=== PATIENT | female | born 1960 | race Caucasian/White ===

== ENCOUNTER 2018-11-07 10:53 | Inpatient (IN) | payer OTHER ==
[~2018-11-07] VITALS: Ht 154.9 cm; Wt 88.0 kg
[~2018-11-07 10:53] MED LIST: ADVAIR; ADVAIR INHALER; ALBUTEROL TX; DOXEPIN HCL25 MG PO; GABAPENTIN300 MG PO
--- OUTSIDE RECORDS SUMMARY | 2018-11-07 10:56 | XMS REPORT ---
Author Author [facility] Address Unknown Phone Unavailable Care Team Providers Care Computer Tape Librarian Name Role Phone Unavailable Unavailable Payers Payer Name Policy Type Policy Number Effective Date Expiration Date Problems This patient has no known problems. Allergies, Adverse Reactions, Alerts Allergy Name Allergy Type Status Severity Reaction(s) Onset Date Inactive Date Treating Clinician Comments propoxyphene HCl DA Active MO 2018-10-28 00:00:00 propoxyphene napsylate DA Active MO 2018-10-28 00:00:00 hydrocodone DA Active MO 2018-10-28 00:00:00 acetaminophen DA Active MO 2018-10-28 00:00:00 propoxyphene HCl DA Active MO 2015-07-17 00:00:00 propoxyphene napsylate DA Active MO 2015-07-17 00:00:00 hydrocodone DA Active MO 2015-07-17 00:00:00 acetaminophen DA Active DE 2015-07-17 00:00:00 Medications This patient has no known medications.
[2018-11-07] MEDS ORDERED: ALBUTEROL SULF 0.083% NEB SOLN 3 ML NEB NEB STA (11:05)
[2018-11-07] MEDS ORDERED: IPRATROPIUM BROMIDE 0.02% 2.5 ML NEB NEB STA (11:05)
--- NOTE | 2018-11-07 11:05 | NUR ---
Bipap settings 12/5 fi02 at 40
--- NOTE | 2018-11-07 11:08 | NUR ---
Respiratory at bedside to apply bipap
[2018-11-07] MEDS ORDERED: METHYLPREDNISOLONE SOD SUCC 125 MG/2ML VIAL IV ONE (11:15)
[2018-11-07] MEDS ORDERED: ASPIRIN 81 MG CHEW TAB PO ONE ×2 (11:15→14:45)
[2018-11-07 11:23] LABS: BASOPHILS # (AUTO) 0.1 (0.0-0.1); BASOPHILS % 0.5 % (0.0-1.0); EOSINOPHILS # (AUTO) 0.9 (0.0-0.4); EOSINOPHILS % 7.8 % (0.0-6.0); HEMATOCRIT 50.2 % (34.2-44.1); LYMPHOCYTES # (AUTO) 4.2 (1.0-3.2); LYMPHOCYTES % 37.7 % (18.0-39.1); MEAN CORPUSCULAR HEMOGLOBIN 29.7 pg (28-32); MEAN CORPUSCULAR HGB CONC 31.9 g/dL (31-35); MEAN CORPUSCULAR VOLUME 93.3 fL (81-99); MONOCYTES # (AUTO) 0.8 (0.2-0.8); MONOCYTES % 7.5 % (4.4-11.3); NEUTROPHILS # (AUTO) 5.2 (2.1-6.9); NEUTROPHILS % 46.1 % (38.7-80.0); PLATELET COUNT 278 x10e3/uL (140-360); RED BLOOD COUNT 5.38 x10e6/uL (3.6-5.1); RED CELL DISTRIBUTION WIDTH 12.6 % (11.7-14.4)
--- NOTE | 2018-11-07 11:43 | NUR ---
Chest xray at bedside
[2018-11-07 11:47] LABS: ALANINE AMINOTRANSFERASE 28 IU/L (0-55); ALBUMIN/GLOBULIN RATIO 1.3 (0.8-2.0); ALKALINE PHOSPHATASE 90 IU/L (40-150); ANION GAP 14.1 mmol/L (8-16); BLOOD UREA NITROGEN 18 mg/dL (7-26); BUN/CREATININE RATIO 22 (6-25); CALCIUM 9.8 mg/dL (8.4-10.2); CARBON DIOXIDE 27 mmol/L (22-29); CHLORIDE 103 mmol/L (98-107); CREATINE KINASE 39 IU/L (29-168); CREATININE, SERUM 0.81 mg/dL (0.57-1.11); EST GLOMERULAR FILTRATION RATE > 60 ML/MIN (60-); GLUCOSE 117 mg/dL (74-118); POTASSIUM 4.1 mmol/L (3.5-5.1); SODIUM 140 mmol/L (136-145)
--- NOTE | 2018-11-07 12:02 | Diagnostic Imaging Report ---
Examination: Single AP view of the chest. COMPARISON: None. INDICATION: Dyspnea DISCUSSION: Lungs are well-inflated and without focal consolidation, pleural effusion, or pneumothorax. Artifact external to the patient limits evaluation of the right lung apex. Cardiomediastinal contour is notable for atherosclerotic calcification of the thoracic aorta. Normal heart size for technique. No pulmonary edema. No acute osseous abnormality. IMPRESSION: 1. No acute cardiopulmonary abnormalities. Signed by: Dr. Ki Medel M.D. on 11/07/2018 11:59 AM
[2018-11-07 12:17] LABS: CREATINE KINASE MB < 1.00 ng/mL (0-4.3)
--- NOTE | 2018-11-07 12:26 | NUR ---
Respiratory reports pressure change to 15/5
--- NOTE | 2018-11-07 13:35 | NUR ---
Bipap in place, tolerating well. Repositioned to comfort, pillow provided, room darkened per pt request. Will continue to monitor.
[2018-11-07] MEDS ORDERED: MAGNESIUM SULFATE 2GM/50ML 50 ML IV ONE (14:45)
[2018-11-07] MEDS ORDERED: DEXAMETHASONE SOD PHOS 10 MG/1 ML VIAL IV ONE (14:45)
[2018-11-07] MEDS ORDERED: AZITHROMYCIN 500MG/SOD CHL 0.9% 250ML BAG IV SCH (14:45)
[2018-11-07] MEDS ORDERED: CEFTRIAXONE SOD 1 GM VIAL IV SCH (14:45)
[2018-11-07] MEDS ORDERED: ALBUTEROL/IPRATROPIUM 3 ML NEB NEB ONE (14:45)
[2018-11-07] MEDS: ALBUTEROL/IPRATROPIUM 3 ML NEB NEB SCH ×3 (15:00→23:15)
[2018-11-07 15:52] LABS: ABG PCO2 57 mmHg (41-51); ABG PH 7.35 (7.31-7.41); ABG PO2 149 mmHg (80-105)
[2018-11-07 15:53] LABS: ABG HCO3 31 mmol/L (23-28)
[2018-11-07] MEDS: CEFTRIAXONE SOD 1 GM/NS 50 ML 50 ML IV SCH (15:58)
--- NOTE | 2018-11-07 16:05 | NUR ---
Bipap removed by RT per pt request. O2 via NC@4lpm applied. Tolerating well at this time, will continue to monitor.
[2018-11-07] MEDS: AZITHROMYCIN 500MG/NS 250 ML 250 ML IV SCH (16:07)
--- NOTE | 2018-11-07 16:55 | NUR ---
Tried to call report to Daisy ARMSTRONG, but was told Daisy would call back to obtain report.
--- NOTE | 2018-11-07 17:36 | NUR ---
Report called to Stefania ARMSTRONG
[2018-11-07 18:15] VITALS: BP 160/90
[2018-11-07 18:17] VITALS: BP 160/90
[2018-11-07] MEDS ORDERED: TYLENOL WITH C1 EACH PO (18:40)
--- NOTE | 2018-11-07 18:53 | NUR ---
recv pt, pt is ST and sob. sats 94% 4lpm nc, bipap at bedside but pt not wanting at this time. paged MD to update on pt status and vs, also to review/restart pt home meds. pt resting in bed at this time. no c/o pain.
[2018-11-07 19:28] LABS: CREATINE KINASE 26 IU/L (29-168)
--- NOTE | 2018-11-07 19:30 | NUR ---
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
[2018-11-07] MEDS: METHYLPREDNISOLONE SOD SUCC 125 MG/2ML VIAL IV SCH (22:51)
[2018-11-08] VITALS (8 sets, daily range): BP systolic 115–131; BP diastolic 62–85
--- NOTE | 2018-11-08 01:07 | NUR ---
assisted pt up to bathroom to void, then back to bed , gave call light to pt and informed her to please call for assistance, pt verbalized understanding.
[2018-11-08] MEDS: ALBUTEROL/IPRATROPIUM 3 ML NEB NEB SCH ×2 (03:30→07:16)
[2018-11-08 05:30] LABS: BASOPHILS % 0.1 % (0.0-1.0); HEMOGLOBIN 14.2 g/dL (12.0-16.0); LYMPHOCYTES # (AUTO) 1.3 (1.0-3.2); LYMPHOCYTES % 9.2 % (18.0-39.1); MEAN CORPUSCULAR HEMOGLOBIN 29.7 pg (28-32); MEAN CORPUSCULAR HGB CONC 31.6 g/dL (31-35); MEAN CORPUSCULAR VOLUME 94.1 fL (81-99); MONOCYTES # (AUTO) 0.1 (0.2-0.8); NEUTROPHILS # (AUTO) 12.3 (2.1-6.9); PLATELET COUNT 240 x10e3/uL (140-360); RED BLOOD COUNT 4.78 x10e6/uL (3.6-5.1); RED CELL DISTRIBUTION WIDTH 12.4 % (11.7-14.4)
--- NOTE | 2018-11-08 05:51 | NUR ---
pt awake requesting a cup of coffee, gave pt a cup of decaffeinated coffee, instructed to call for help prior to getting out of bed, verbalized understanding, call earl in reach.
[2018-11-08 05:55] LABS: CREATINE KINASE MB 0.7 ng/mL (0-5.0)
[2018-11-08] MEDS: METHYLPREDNISOLONE SOD SUCC 125 MG/2ML VIAL IV SCH ×3 (06:00→21:12)
[2018-11-08 06:20] LABS: ANION GAP 13.5 mmol/L (8-16); BLOOD UREA NITROGEN 19 mg/dL (7-26); BUN/CREATININE RATIO 24 (6-25); CALCIUM 9.2 mg/dL (8.4-10.2); CARBON DIOXIDE 27 mmol/L (22-29); CHLORIDE 103 mmol/L (98-107); EST GLOMERULAR FILTRATION RATE > 60 ML/MIN (60-); GLUCOSE 241 mg/dL (74-118); POTASSIUM 4.5 mmol/L (3.5-5.1); SODIUM 139 mmol/L (136-145)
--- NOTE | 2018-11-08 07:12 | NUR ---
pt resting in bed, no c/o pain or s/s distress. will continue to monitor.
[2018-11-08] MEDS ORDERED: BENZONATATE 100 MG CAP PO PRN (09:45)
[2018-11-08] MEDS ORDERED: HYDRALAZINE HCL 25 MG TAB PO PRN (09:45)
[2018-11-08] MEDS ORDERED: LEVALBUTEROL HCL SOLN NEBU 1.25 MG/3 ML NEB INH PRN (09:45)
[2018-11-08] MEDS ORDERED: ACETAMINOPHEN/CODEINE 300MG - 30MG TAB PO PRN (09:45)
--- NOTE | 2018-11-08 09:48 | NUR ---
MD on unit, made aware pt running ST maintaining upto 120s and reaches 140s when coughing.
--- NOTE | 2018-11-08 10:29 | NUR ---
confirmed with pt she has allergy to Darvocet, breaks out in hives, but does not have reaction to T3 which she currently takes prn and states she doesnt have rx when taking cough syrup with codeine.
[2018-11-08] MEDS ORDERED: DILTIAZEM HCL ER 120 MG CAPCR PO SCH (10:30)
[2018-11-08] MEDS: IPRATROPIUM BROMIDE 0.02% 2.5 ML NEB NEB SCH ×4 (10:50→22:43)
[2018-11-08] MEDS: LEVALBUTEROL HCL SOLN NEBU 1.25 MG/3 ML NEB INH SCH ×4 (10:50→22:43)
--- NOTE | 2018-11-08 10:55 | Diagnostic Imaging Report ---
CT CHEST WITHOUT CONTRAST HISTORY: Shortness of breath COMPARISON: Chest radiograph November 07, 2018. TECHNIQUE: CT scan of the chest WITHOUT intravenous contrast, using standard protocol. The chest was scanned utilizing a multidetector helical scanner from the apex to the level of the adrenal glands. Coronal and sagittal reformats are provided. IV CONTRAST: None, which limits evaluation of the vascular structures, mediastinum and soft tissues. RADIATION DOSE: Total DLP: 493.86 mGy*cm Dose modulation, iterative reconstruction, and/or weight based adjustment of the mA/kV was utilized to reduce the radiation dose to as low as reasonably achievable. COMPLICATIONS: None FINDINGS: Lines/tubes: None. Lungs and Airways: Minimal centrilobular emphysema. Diffuse bronchial wall thickening. Mild bibasilar atelectasis. Subtle right lower lobe groundglass opacity with a central 3 mm nodular density (series 3 image 52). Pleura: No effusion or pneumothorax. Heart and mediastinum: The thyroid gland is normal. The heart and pericardium are within normal limits. Abdomen: Limited nonenhanced views of the upper abdomen. Incidentally, a 2.2 cm left adrenal nodule is less than 10 Hounsfield units. Lymph nodes: No pathologically enlarged lymph node. Vessels: Scattered atherosclerotic vascular calcifications. Bones: No acute osseous lesion identified. Soft tissues: Otherwise, unremarkable. IMPRESSION: 1. Subtle right lower lobe groundglass opacity with central nodular density. Recommend a follow-up CT of the chest without contrast in 3 months to ensure resolution. 2. Minimal centrilobular emphysema and nonspecific bronchitis. 3. Incidental left adrenal nodule, compatible with a lipid rich adenoma. Signed by: Dr. Alexandru Anna D.O., M.M.M. on 11/08/2018 10:51 AM
--- NOTE | 2018-11-08 11:14 | NUR ---
dr pelaez on unit, aware of CT
[2018-11-08] MEDS: GUAIFENESIN/CODEINE 10 ML CUP PO PRN (11:25)
--- NOTE | 2018-11-08 12:11 | Consultation ---
DATE OF CONSULTATION: PULMONARY CONSULTATION REASON FOR CONSULT: Shortness of breath and wheezing. HPI: Ms. Arce is a 58-year-old female with cough, wheezing, and shortness of breath going on for the last one year, but for the last few days progressively getting worse. She quit smoking a year ago, smoked for 50 years 1 pack per day. She denies any history of chest pain, abdominal pain. She does not use home oxygen. She is on nebulizer at home. She is not on any maintenance inhalers. REVIEW OF SYSTEMS GENERAL: Denies any fever or chills HEAD: Denies any head trauma. ENT: Denies any earache. CVS: Denies any chest pain. RESPIRATORY: Shortness of breath and wheezing. GI: Denies any nausea or vomiting. MUSCULOSKELETAL: Denies any arthralgias or myalgias. NEUROLOGIC: Denies any focal weakness. Rest of the review systems are negative except as in HPI. PAST MEDICAL HISTORY: Hypertension. PAST SURGICAL HISTORY: Unknown. FAMILY HISTORY/SOCIAL HISTORY: Ex-smoker. Denies any alcohol use. PHYSICAL EXAMINATION VITAL SIGNS: Temperature 98.1, pulse of 107, blood pressure is 116/71, respiratory rate of 20. HEENT: Head atraumatic, normocephalic. NECK: Supple. CHEST: Wheezing bilaterally. No crackles. HEART: S1, S2 audible. ABDOMEN: Soft, nontender, nondistended. EXTREMITIES: No clubbing, cyanosis, or edema. NEUROLOGIC: Awake and alert. No focal neurologic deficit. CT of the chest, I reviewed the images. There is nothing significant except emphysema. There is an area of ground-glass which appears like mucous; however, since the patient is smoker, will need a followup. Official report says 3-month followup. LABS: Reviewed. White count of 13,000. Creatinine 0.8. ASSESSMENT/PLAN: Ms. Arce is a 58-year-old female. She presented to the emergency room with worsening shortness of breath, wheezing, and cough. She has a 10-geyi-olpu smoking history, likely has underlying COPD. CT chest is not showing any evidence of pneumonia. There is a small area of ground-glass. RECOMMENDATIONS 1. Agree with Xopenex. Patient was getting tachycardiac with DuoNebs. 2. Continue Solu-Medrol as ordered and oxygen as needed. She will need outpatient followup for maintenance treatment for COPD and outpatient PFT as well. Job#: [id number] CLIFFORD
--- NOTE | 2018-11-08 13:09 | NUR ---
SOCIAL WORK INITIAL ASSESSMENT Service Station Helper to bedside to discuss plan of care with patient/family. CM/SW role and care transitions discussed. Anticipated discharge plan discussed along with duration of care. CM/SW discussed patients right to make decisions in care. CM/SW work hours given. 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 Name and number was also written on the patients whiteboard. Patient verbalized understanding of discussion. CM will follow-up with ongoing discharge and transition of care needs.
[2018-11-08] MEDS: AZITHROMYCIN 500MG/NS 250 ML 250 ML IV SCH (14:25)
[2018-11-08] MEDS: CEFTRIAXONE SOD 1 GM/NS 50 ML 50 ML IV SCH (14:25)
[2018-11-08] MEDS: BENZONATATE 100 MG CAP PO SCH ×2 (14:25→21:12)
[2018-11-08] MEDS: ENOXAPARIN SOD INJ 40 MG/0.4 ML SYR SC SCH (17:00)
--- NOTE | 2018-11-08 19:15 | NUR ---
received report from heydi espinoza, at pt's bedside. pt aaox3, ambulatory in room, c/o cough, informed pt she has rebecca ruiz scheduled, she stated ok, informed her to call for help, call earl at pt's bedside.
[2018-11-08] MEDS: GABAPENTIN 300 MG CAP PO SCH (21:12)
[2018-11-08] MEDS: DOXEPIN HCL 25 MG CAP PO SCH (21:12)
--- NOTE | 2018-11-08 23:00 | NUR ---
PT ASK FOR A CUP OF DECAFFEINATED COFFEE, WHICH WAS GIVEN TO HER. , PT STATES COUGH BETTER WITH THE TESSALON PEARLS . PT CONTINUES TO STAY [facility]ERAP[facility], HEART RATE BETTER SINCE SHE STARTRD ON CARDIZEM PO.
[2018-11-09] VITALS (8 sets, daily range): BP systolic 114–124; BP diastolic 52–74
[2018-11-09] MEDS: LEVALBUTEROL HCL SOLN NEBU 1.25 MG/3 ML NEB INH SCH ×6 (03:15→23:17)
[2018-11-09] MEDS: IPRATROPIUM BROMIDE 0.02% 2.5 ML NEB NEB SCH ×6 (03:15→23:17)
[2018-11-09 05:26] LABS: BASOPHILS # (AUTO) 0.1 (0.0-0.1); BASOPHILS % 0.2 % (0.0-1.0); HEMOGLOBIN 13.6 g/dL (12.0-16.0); LYMPHOCYTES # (AUTO) 1.2 (1.0-3.2); LYMPHOCYTES % 4.2 % (18.0-39.1); MEAN CORPUSCULAR HEMOGLOBIN 29.8 pg (28-32); MEAN CORPUSCULAR HGB CONC 30.9 g/dL (31-35); MEAN CORPUSCULAR VOLUME 96.5 fL (81-99); MONOCYTES # (AUTO) 0.5 (0.2-0.8); MONOCYTES % 1.7 % (4.4-11.3); NEUTROPHILS # (AUTO) 26.9 (2.1-6.9); NEUTROPHILS % 92.9 % (38.7-80.0); PLATELET COUNT 227 x10e3/uL (140-360); RED BLOOD COUNT 4.56 x10e6/uL (3.6-5.1); RED CELL DISTRIBUTION WIDTH 12.8 % (11.7-14.4)
[2018-11-09 05:45] LABS: ANION GAP 12.4 mmol/L (8-16); BLOOD UREA NITROGEN 24 mg/dL (7-26); BUN/CREATININE RATIO 30 (6-25); CALCIUM 9.3 mg/dL (8.4-10.2); CARBON DIOXIDE 31 mmol/L (22-29); CHLORIDE 101 mmol/L (98-107); CREATININE, SERUM 0.81 mg/dL (0.57-1.11); EST GLOMERULAR FILTRATION RATE > 60 ML/MIN (60-); GLUCOSE 204 mg/dL (74-118); POTASSIUM 5.4 mmol/L (3.5-5.1); SODIUM 139 mmol/L (136-145)
[2018-11-09] MEDS ORDERED: DILTIAZEM HCL ER 120 MG CAPCR PO SCH (06:00)
[2018-11-09] MEDS: METHYLPREDNISOLONE SOD SUCC 125 MG/2ML VIAL IV SCH (06:21)
--- NOTE | 2018-11-09 06:22 | NUR ---
MEDICATED PT WITH IV STEROID, PT SITTING UP WATCHING TELEVISION, WILL REPORT OFF WITH ONCOMING NURSE IN BED SIDE REPORT.
[2018-11-09] MEDS: BENZONATATE 100 MG CAP PO SCH ×3 (08:27→22:00)
[2018-11-09] MEDS: DILTIAZEM HCL ER 120 MG CAPCR PO SCH (08:28)
--- NOTE | 2018-11-09 08:53 | NUR ---
pt resting in bed. vs stable. no c/o pain or s/s distress at this time.
[2018-11-09] MEDS ORDERED: GUAIFENESIN/CODEINE 10 ML CUP PO PRN (10:00)
[2018-11-09 11:10] LABS: BAND NEUTROPHILS % (MANUAL) 1 %; LYMPHOCYTES % (MANUAL) 7 % (19-48); MONOCYTES % (MANUAL) 5 % (3.4-9.0); NEUTROPHILS % (MANUAL) 87 % (40-74); PLATELET ESTIMATE ADEQUATE; PLATELET MORPHOLOGY COMMENT NORMAL; RBC MORPHOLOGY COMMENT NORMAL
[2018-11-09] MEDS: AZITHROMYCIN 500MG/NS 250 ML 250 ML IV SCH (14:41)
[2018-11-09] MEDS: METHYLPREDNISOLONE SOD SUCC 40 MG/ML VIAL 1ML IV SCH ×2 (14:41→22:00)
[2018-11-09] MEDS: CEFTRIAXONE SOD 1 GM/NS 50 ML 50 ML IV SCH (14:41)
[2018-11-09] MEDS: ENOXAPARIN SOD INJ 40 MG/0.4 ML SYR SC SCH (17:00)
--- NOTE | 2018-11-09 20:00 | NUR ---
RECEIVED REPORT FROM OFF GOING NURSE , GAVE BEDSIDE REPORT , PT DENIES RESP DISTRESS, ABLE TO AMBULATE TO BATHROOM . 02 ON AT 3.0 LITERS PER N/C., TOLERATING WELL
[2018-11-09] MEDS: DOXEPIN HCL 25 MG CAP PO SCH (22:00)
[2018-11-09] MEDS: GABAPENTIN 300 MG CAP PO SCH (22:00)
[2018-11-10] VITALS: BP 105/73
--- NOTE | 2018-11-10 01:00 | NUR ---
PT AWAKE PLAYING A GAME ON HER PHONE, O2 REMAINS ON FOR RESP CARE, TOLERATING BREATHING TREATMENTS WELL
[2018-11-10 05:55] LABS: ANION GAP 10.2 mmol/L (8-16); BLOOD UREA NITROGEN 19 mg/dL (7-26); BUN/CREATININE RATIO 24 (6-25); CALCIUM 9.1 mg/dL (8.4-10.2); CARBON DIOXIDE 35 mmol/L (22-29); CHLORIDE 98 mmol/L (98-107); CREATININE, SERUM 0.79 mg/dL (0.57-1.11); EST GLOMERULAR FILTRATION RATE > 60 ML/MIN (60-); GLUCOSE 208 mg/dL (74-118); POTASSIUM 5.2 mmol/L (3.5-5.1); SODIUM 138 mmol/L (136-145)
[2018-11-10 06:16] LABS: BASOPHILS % 0.1 % (0.0-1.0); HEMATOCRIT 39.5 % (34.2-44.1); HEMOGLOBIN 13.1 g/dL (12.0-16.0); LYMPHOCYTES # (AUTO) 0.9 (1.0-3.2); LYMPHOCYTES % 3.9 % (18.0-39.1); MEAN CORPUSCULAR HEMOGLOBIN 31.3 pg (28-32); MEAN CORPUSCULAR HGB CONC 33.2 g/dL (31-35); MEAN CORPUSCULAR VOLUME 94.5 fL (81-99); MONOCYTES # (AUTO) 0.5 (0.2-0.8); MONOCYTES % 2.1 % (4.4-11.3); NEUTROPHILS # (AUTO) 20.2 (2.1-6.9); NEUTROPHILS % 92.4 % (38.7-80.0); PLATELET COUNT 225 x10e3/uL (140-360); RED BLOOD COUNT 4.18 x10e6/uL (3.6-5.1)
[2018-11-10] MEDS: METHYLPREDNISOLONE SOD SUCC 40 MG/ML VIAL 1ML IV SCH ×3 (07:11→21:44)
[2018-11-10] MEDS: LEVALBUTEROL HCL SOLN NEBU 1.25 MG/3 ML NEB INH SCH ×5 (07:23→22:58)
[2018-11-10] MEDS: IPRATROPIUM BROMIDE 0.02% 2.5 ML NEB NEB SCH ×5 (07:23→22:58)
[2018-11-10 07:37] VITALS: BP 107/63
[2018-11-10 07:38] VITALS: BP 107/63
--- NOTE | 2018-11-10 08:13 | NUR ---
pt resting in bed, no c/o pain or s/s distress. MD on unit, aware of K lab. will continue to monitor.
[2018-11-10] MEDS: DILTIAZEM HCL ER 120 MG CAPCR PO SCH (08:47)
[2018-11-10] MEDS: BENZONATATE 100 MG CAP PO SCH ×3 (08:47→21:44)
[2018-11-10] MEDS ORDERED: SOD POLYSTYRENE SULFONATE SUSP 15 GM/60 ML BTL PO ONE (09:00)
[2018-11-10] MEDS ORDERED: FAMOTIDINE 20 MG TAB PO ONE (10:00)
[2018-11-10 10:10] LABS: HOWELL-JOLLY BODIES FEW; HYPOCHROMASIA SLIGHT; LYMPHOCYTES % (MANUAL) 3 % (19-48); MONOCYTES % (MANUAL) 1 % (3.4-9.0); NEUTROPHILS % (MANUAL) 93 % (40-74); RBC MORPHOLOGY COMMENT NORMAL
[2018-11-10 10:12] LABS: PLATELET ESTIMATE ADEQUATE; PLATELET MORPHOLOGY COMMENT FEW LARGE
[2018-11-10 10:13] LABS: ANISOCYTOSIS SLIGHT
[2018-11-10 12:49] VITALS: BP 122/65
[2018-11-10] MEDS: CEFTRIAXONE SOD 1 GM/NS 50 ML 50 ML IV SCH (16:26)
[2018-11-10] MEDS: AZITHROMYCIN 500MG/NS 250 ML 250 ML IV SCH (16:26)
[2018-11-10] MEDS: ENOXAPARIN SOD INJ 40 MG/0.4 ML SYR SC SCH (16:27)
[2018-11-10 16:28] VITALS: BP 124/74
--- NOTE | 2018-11-10 18:00 | NUR ---
pt c/o no bm in 3 days. Kayexalate given today and no bm. pt states "dr davis normally gives me linzess". left vm for
[2018-11-10 20:00] VITALS: BP 146/88
[2018-11-10] MEDS: GUAIFENESIN/CODEINE 10 ML CUP PO PRN (20:12)
[2018-11-10] MEDS: GABAPENTIN 300 MG CAP PO SCH (21:44)
[2018-11-10] MEDS: DOXEPIN HCL 25 MG CAP PO SCH (21:44)
[2018-11-10] MEDS: FAMOTIDINE 20 MG TAB PO SCH (21:45)
[2018-11-11] VITALS (8 sets, daily range): BP systolic 108–154; BP diastolic 64–94
[2018-11-11] MEDS: LEVALBUTEROL HCL SOLN NEBU 1.25 MG/3 ML NEB INH SCH ×6 (02:37→23:00)
[2018-11-11] MEDS: IPRATROPIUM BROMIDE 0.02% 2.5 ML NEB NEB SCH ×6 (02:37→23:00)
[2018-11-11 05:00] LABS: BASOPHILS % 0.1 % (0.0-1.0); HEMATOCRIT 42.7 % (34.2-44.1); HEMOGLOBIN 13.3 g/dL (12.0-16.0); LYMPHOCYTES # (AUTO) 0.7 (1.0-3.2); LYMPHOCYTES % 4.9 % (18.0-39.1); MEAN CORPUSCULAR HEMOGLOBIN 30.1 pg (28-32); MEAN CORPUSCULAR HGB CONC 31.1 g/dL (31-35); MEAN CORPUSCULAR VOLUME 96.6 fL (81-99); MONOCYTES # (AUTO) 0.4 (0.2-0.8); NEUTROPHILS # (AUTO) 12.2 (2.1-6.9); NEUTROPHILS % 90.1 % (38.7-80.0); PLATELET COUNT 213 x10e3/uL (140-360); RED BLOOD COUNT 4.42 x10e6/uL (3.6-5.1); RED CELL DISTRIBUTION WIDTH 12.6 % (11.7-14.4)
[2018-11-11 05:13] LABS: ANION GAP 9.7 mmol/L (8-16); BLOOD UREA NITROGEN 21 mg/dL (7-26); BUN/CREATININE RATIO 27 (6-25); CALCIUM 8.9 mg/dL (8.4-10.2); CARBON DIOXIDE 34 mmol/L (22-29); CHLORIDE 99 mmol/L (98-107); CREATININE, SERUM 0.78 mg/dL (0.57-1.11); EST GLOMERULAR FILTRATION RATE > 60 ML/MIN (60-); GLUCOSE 259 mg/dL (74-118); POTASSIUM 4.7 mmol/L (3.5-5.1); SODIUM 138 mmol/L (136-145)
[2018-11-11] MEDS: METHYLPREDNISOLONE SOD SUCC 40 MG/ML VIAL 1ML IV SCH ×2 (06:14→16:42)
--- NOTE | 2018-11-11 08:42 | NUR ---
Dr. Moon shook to transfer patient to med surg with telemetry.
[2018-11-11] MEDS: FAMOTIDINE 20 MG TAB PO SCH ×2 (08:58→16:30)
[2018-11-11] MEDS: DILTIAZEM HCL ER 120 MG CAPCR PO SCH (08:58)
[2018-11-11] MEDS: BENZONATATE 100 MG CAP PO SCH ×3 (08:59→21:30)
--- NOTE | 2018-11-11 13:00 | NUR ---
RCD PT BY WHEEL CHAIR PT IS ALERT AND ORIENTED VITALS CHECKED PT RESTING ON BED BED LOW AND LOCKED CALL LIGHT IN REACH
[2018-11-11] MEDS ORDERED: SODIUM CHLORIDE 0.9% 250ML 250 ML ONE (14:42)
[2018-11-11] MEDS: CEFTRIAXONE SOD 1 GM/NS 50 ML 50 ML IV SCH (15:00)
[2018-11-11] MEDS: AZITHROMYCIN 500MG/NS 250 ML 250 ML IV SCH (15:00)
[2018-11-11] MEDS: ENOXAPARIN SOD INJ 40 MG/0.4 ML SYR SC SCH (16:43)
--- NOTE | 2018-11-11 19:00 | NUR ---
PT RESTING ON BED BED SIDE REPORT GIVEN TO ONCOMING NURSE
--- NOTE | 2018-11-11 19:30 | NUR ---
RECEIVED THE PT IN REPORT.AAOX3.NO RESP.DISTRESS.NO PAIN VOICED.BED LOCKED AND IN LOWEST POSITION.PHONE AND CALL LIGHT WITHIN REACH.INSTRUCTED TO CALL FOR ASSISTANCE NEEDED.
[2018-11-11] MEDS: DOXEPIN HCL 25 MG CAP PO SCH (21:05)
[2018-11-11] MEDS: GABAPENTIN 300 MG CAP PO SCH (21:10)
[2018-11-12] VITALS: BP 132/77
--- NOTE | 2018-11-12 02:36 | NUR ---
PT IS RESTING IN THE BED.NO PAIN VOICED.
[2018-11-12] MEDS: LEVALBUTEROL HCL SOLN NEBU 1.25 MG/3 ML NEB INH SCH ×5 (03:00→19:25)
[2018-11-12] MEDS: IPRATROPIUM BROMIDE 0.02% 2.5 ML NEB NEB SCH ×5 (03:00→19:25)
[2018-11-12 04:00] VITALS: BP 135/75
--- NOTE | 2018-11-12 06:45 | NUR ---
REPORT GIVEN TO THE ONCOMING RN.WALKING ROUNDS DONE.STABLE CONDITION.
--- NOTE | 2018-11-12 07:10 | NUR ---
RCD PT AT BED PT IS ALERT AND ORIENTED PT RESTING ON BED IV PATENT FAMILY AT BED SIDE BED LOW AND LOCKED CALL LIGHT IN REACH
[2018-11-12] MEDS: FAMOTIDINE 20 MG TAB PO SCH ×2 (07:30→16:30)
[2018-11-12 08:00] VITALS: BP 120/78
[2018-11-12] MEDS: METHYLPREDNISOLONE SOD SUCC 40 MG/ML VIAL 1ML IV SCH ×2 (09:00→16:47)
[2018-11-12] MEDS: BENZONATATE 100 MG CAP PO SCH ×3 (09:00→20:47)
[2018-11-12] MEDS: DILTIAZEM HCL ER 120 MG CAPCR PO SCH (09:00)
[2018-11-12] MEDS ORDERED: TEMAZEPAM 15 MG CAP PO PRN (09:15)
[2018-11-12 12:00] VITALS: BP 145/68
[2018-11-12] MEDS: CEFTRIAXONE SOD 1 GM/NS 50 ML 50 ML IV SCH (15:00)
[2018-11-12 16:00] VITALS: BP 152/85
[2018-11-12] MEDS: ENOXAPARIN SOD INJ 40 MG/0.4 ML SYR SC SCH (16:47)
--- NOTE | 2018-11-12 18:43 | NUR ---
PT RESTING ON BED BED SIDE REPORT GIVEN TO ONCOMING NURSE
[2018-11-12 20:00] VITALS: BP 159/90
[2018-11-12] MEDS: DOXEPIN HCL 25 MG CAP PO SCH (20:47)
[2018-11-12] MEDS: GABAPENTIN 300 MG CAP PO SCH (20:47)
[2018-11-13 04:00] VITALS: BP 125/83
[2018-11-13 05:31] LABS: ANION GAP 12.6 mmol/L (8-16); BLOOD UREA NITROGEN 20 mg/dL (7-26); BUN/CREATININE RATIO 26 (6-25); CALCIUM 9.2 mg/dL (8.4-10.2); CARBON DIOXIDE 33 mmol/L (22-29); CHLORIDE 101 mmol/L (98-107); CREATININE, SERUM 0.78 mg/dL (0.57-1.11); EST GLOMERULAR FILTRATION RATE > 60 ML/MIN (60-); GLUCOSE 153 mg/dL (74-118); POTASSIUM 4.6 mmol/L (3.5-5.1); SODIUM 142 mmol/L (136-145)
[2018-11-13 06:08] LABS: BASOPHILS # (AUTO) 0.1 (0.0-0.1); BASOPHILS % 0.6 % (0.0-1.0); EOSINOPHILS % 0.1 % (0.0-6.0); HEMATOCRIT 48.3 % (34.2-44.1); HEMOGLOBIN 15.5 g/dL (12.0-16.0); LYMPHOCYTES # (AUTO) 2.6 (1.0-3.2); LYMPHOCYTES % 18.3 % (18.0-39.1); MEAN CORPUSCULAR HEMOGLOBIN 29.9 pg (28-32); MEAN CORPUSCULAR HGB CONC 32.1 g/dL (31-35); MEAN CORPUSCULAR VOLUME 93.2 fL (81-99); MONOCYTES # (AUTO) 1.1 (0.2-0.8); MONOCYTES % 7.3 % (4.4-11.3); NEUTROPHILS # (AUTO) 10.2 (2.1-6.9); NEUTROPHILS % 70.6 % (38.7-80.0); PLATELET COUNT 249 x10e3/uL (140-360); RED BLOOD COUNT 5.18 x10e6/uL (3.6-5.1); RED CELL DISTRIBUTION WIDTH 12.6 % (11.7-14.4)
[2018-11-13] MEDS: IPRATROPIUM BROMIDE 0.02% 2.5 ML NEB NEB SCH ×2 (06:37→11:00)
[2018-11-13] MEDS: LEVALBUTEROL HCL SOLN NEBU 1.25 MG/3 ML NEB INH SCH ×2 (06:37→11:00)
--- NOTE | 2018-11-13 07:12 | NUR ---
pt asleep resp even and unlabored at this time, pt arousal to name, will cont to monitor pt also has no c/o pain when asked, call light in reach.
[2018-11-13] MEDS: FAMOTIDINE 20 MG TAB PO SCH (07:30)
[2018-11-13 08:00] VITALS: BP 127/85
[2018-11-13] MEDS: METHYLPREDNISOLONE SOD SUCC 40 MG/ML VIAL 1ML IV SCH (09:00)
[2018-11-13] MEDS: DILTIAZEM HCL ER 120 MG CAPCR PO SCH (09:00)
[2018-11-13] MEDS: BENZONATATE 100 MG CAP PO SCH (09:00)
--- NOTE | 2018-11-13 09:30 | Discharge Summary ---
FINAL DIAGNOSES 1. Acute exacerbation of chronic obstructive pulmonary disease associated with [id number] hypoxia. 2. Status post respiratory insufficiency, required BiPAP. 3. Moderate obesity. 4. Sinus tachycardia. 5. Recently quit smoking. 6. Hypertension. SUMMARY: A 58-year-old female came in with acute exacerbation of COPD. Failed outpatient treatment. She had decompensated COPD. She was recently at another hospital, but left the hospital without treatment. The patient had been using her nebulizer treatments, and also inhaler at home. She did not improve. She came into the hospital here at [facility] in near respiratory failure. The patient was placed on BiPAP. She received high dose steroids along with multiple nebulizer treatments and had poor comfort. She is doing much better now. She is stable. The patient will go home today and continue with Medrol Dosepak, steroid pack, Kassie-Tussin AC for cough. She was initiated on Cardizem CD 120 mg daily for both her blood pressure and also heart rate, and the sinus tachycardia is now improving. Heart rate 90-95 instead of 110-120 heartbeats per minute. Patient is stable and discharged home today. She will follow up with me on Saturday. No return to work until cleared on followup visit next week. Job#: [id number] ALTHEA
[2018-11-13 10:26] LABS: EOSINOPHILS % (MANUAL) 2 % (0-7); LYMPHOCYTES % (MANUAL) 21 % (19-48); METAMYELOCYTES % (MANUAL) 1 % (0-0); MONOCYTES % (MANUAL) 10 % (3.4-9.0); MYELOCYTES % (MANUAL) 1 % (0-0); NEUTROPHILS % (MANUAL) 65 % (40-74)
[2018-11-13 10:27] LABS: PLATELET ESTIMATE ADEQUATE; PLATELET MORPHOLOGY COMMENT NORMAL; RBC MORPHOLOGY COMMENT NORMAL
[2018-11-13 12:00] VITALS: BP 138/85
--- NOTE | 2018-11-13 12:10 | NUR ---
pt discharged home with prescriptions, pt was educated on medications and to follow up with their PCP, iv site removed catheter tip intact, no swelling no redness to site.
--- NOTE | 2018-11-13 13:28 | Consultation ---
DATE OF CONSULTATION: November 11, 2018 CARDIOLOGY CONSULTATION Thank you so much for asking me to see this nice lady again in consultation. Ms. Arce is a complex 58-year-old woman with COPD, ex-smoker. CHIEF COMPLAINT: She was admitted evidently on November 07, 2018, with cough, shortness of breath and wheezing. HISTORY OF PRESENT ILLNESS: She denies any chest pain or noting any palpitations. PAST MEDICAL HISTORY: Significant for previous hospitalization in January 2017 to [facility] where she also had exacerbation of COPD and a spider bite. 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 She also has long-standing arthritis, asthma, COPD, depression, gastroesophageal reflux, and hyperlipidemia. PREVIOUS SURGERY: Hysterectomy. PERSONAL/SOCIAL HISTORY: She evidently stopped smoking in 2015. FAMILY HISTORY: Positive for cancer and diabetes. HOME MEDICATIONS: Please see the chart. PHYSICAL EXAMINATION GENERAL: At this time shows a pleasant obese woman who is alert and responsive. VITALS: Five feet 1 inches tall, weighing 194 pounds, blood pressure 128/72, pulse is 98 and regular. HEENT: Unremarkable. THORAX: Heart sounds S1 and S2 are equal and slightly rapid. No distinct murmur. LUNGS: Have faint diffuse wheezing and reduced breath sounds. ABDOMEN: Protuberant. EXTREMITIES: No cyanosis, clubbing or edema. LABORATORY STUDIES: Remarkable for an admitting white cell count of 11.2 and going up to 28.9 and back down to 13.5 today. EKG and telemetry strips show sinus tachycardia and PACs. No evidence of any atrial fib or atrial flutter. Echocardiogram performed today shows normal left ventricular function. ASSESSMENT 1. Exacerbation of chronic obstructive pulmonary disease. 2. Sinus tachycardia similar to previous hospitalization in 2017. PLAN: Will monitor on telemetry with you. Cardiac status appears to be stable at this time. Thank for asking me to see her in consultation. Job#: [id number] ALTHEA
== END 2018-11-13 12:06 | disposition home or self-care (01) | DRG 189 ==
LOC: ER 10:53 → ERHOLD 15:03 → IMCU 18:00 → MED/SURG2 11-11 12:57
PROVIDERS: ADMIT Internal Medicine; ATTEND Internal Medicine
PROC: 5A09357 Assistance with Respiratory Ventilation, Less than 24 Consecutive Hours, Continuous Positive Airway Pressure (ICD-10-PCS; principal; 2018-11-07)
DX: J96.01 Acute respiratory failure with hypoxia (principal); J44.1 Chronic obstructive pulmonary disease with (acute) exacerbation; I10 Essential (primary) hypertension; G47.00 Insomnia, unspecified; E66.9 Obesity, unspecified; Z68.36 Body mass index [BMI] 36.0-36.9, adult; F41.9 Anxiety disorder, unspecified; K58.9 Irritable bowel syndrome, unspecified; F32.9 Major depressive disorder, single episode, unspecified; R00.0 Tachycardia, unspecified; E87.5 Hyperkalemia; Z87.891 Personal history of nicotine dependence; Z88.5 Allergy status to narcotic agent; Z88.8 Allergy status to other drugs, medicaments and biological substances; Z91.19 Patient's noncompliance with other medical treatment and regimen
CPT/HCPCS: 36415; 36600; 71045; 71250; 80048; 80053; 82550; 82553; 82805; 84484; 85025; 93005; 93306; 94640; 94660; 99284; J0456; J0696; J1100; J1650; J2920; J2930; J3475; J7050